=== PATIENT | male | born 1985 | race Two or more races ===

== ENCOUNTER 2022-02-28 22:18 | Inpatient (IN) | payer OTHER ==
[~2022-02-28] VITALS: Ht 180.3 cm; Wt 126.8 kg
[~2022-02-28 22:18] MED LIST: ALBU8HFA IH; ASPI325T87 PO; CHOL25TA4 PO; FERR325T27 PO; LEVO50 PO; MAGN500C16 PO; METO25XL PO; PANT-31 PO; POTA-92 PO; RIVA20TA PO; SACU1TAB7 PO; SPIR-37 PO; TORS10TA18 PO
[2022-02-28 22:53] LABS: BASOPHILS % (AUTO) 0.7 % (0.0-2.0); EOSINOPHILS % (AUTO) 1.4 % (1.0-6.0); HEMATOCRIT 42.7 % (41-53); HEMOGLOBIN 14.5 g/dL (13.5-17.5); LYMPHOCYTES % (AUTO) 28.1 % (22.0-44.0); MEAN CORPUSCULAR HEMOGLOBIN 31.2 pg (26.0-34.0); MEAN CORPUSCULAR HGB CONC 33.8 G/dL (31.0-37.0); MEAN CORPUSCULAR VOLUME 92 fL (80-100); MONOCYTES # (AUTO) 0.6 K/uL (0.1-1.0); MONOCYTES % (AUTO) 8.1 % (2.0-9.0); NEUTROPHILS # (AUTO) 4.5 K/uL (1.8-7.7); NEUTROPHILS % (AUTO) 61.7 % (40.0-70.0); PLATELET COUNT (AUTO) 198 K/uL (150-450); RED BLOOD CELL COUNT(AUTO) 4.64 MIL/uL (4.50-5.90); RED CELL DISTRIBUTION WIDTH 16.1 % (11.5-14.5)
[2022-02-28] MEDS ORDERED: NITROGLYCERIN 0.4 MG SUBLINGUAL TABLET #25 SL ONE (23:00)
[2022-02-28] MEDS ORDERED: MORPHINE SULFATE 4 MG/ML SYRINGE IVP ONE (23:00)
[2022-02-28] MEDS ORDERED: DiphenhydrAMINE HCL 50 MG/ML VIAL IVP ONE (23:00)
[2022-02-28 23:01] LABS: ANION GAP 16 mmol/L (8-16); CALCIUM, TOTAL 8.7 mg/dL (8.8-10.5); CARBON DIOXIDE 25 mmol/L (22-29); CHLORIDE 102 mmol/L (98-107); CREATININE 1.08 mg/dL (0.60-1.30); GLOMERULAR FILTR. RATE CALC > 60 mL/min (>60); GLUCOSE,RANDOM 109 mg/dL (70-110); POTASSIUM 3.7 mmol/L (3.5-5.1); SODIUM SERUM 143 mmol/L (136-145); UREA NITROGEN, BLOOD 11 mg/dL (7-18)
[2022-02-28 23:05] LABS: D-DIMER 0.46 mg/L FEU (0.00-0.50); INR 1.1 (0.9-1.1); PROTHROMBIN TIME 11.5 SEC (9.4-11.6)
[2022-02-28 23:14] LABS: B-TYPE NATRIURETIC PEPTIDE 2070 pg/mL (0-100)
[2022-02-28 23:18] LABS: ALANINE AMINOTRANSFERASE 37 U/L (12-78); ALBUMIN 3.7 g/dL (3.4-5.0); ALKALINE PHOSPHATASE 102 U/L (46-116); ASPARTATE AMINOTRANSFERASE 28 U/L (15-37); BILIRUBIN,TOTAL 1.3 mg/dL (0.1-1.0); CREATINE KINASE, TOTAL ONLY 79 U/L (39-308); THYROID STIMULATING HORMONE 7.04 uIU/mL (0.36-3.74); TOTAL PROTEIN, SERUM 7.5 g/dL (6.4-8.2)
[2022-02-28] MEDS ORDERED: BISACODYL 10 MG RECTAL RECTAL SUPPOSITORY PR PRN (23:30)
[2022-02-28] MEDS ORDERED: FUROSEMIDE 40 MG/4 ML VIAL IVP ONE (23:30)
[2022-02-28] MEDS ORDERED: MAGNESIUM HYDROXIDE SUSPENSION 30 ML UDCUP PO PRN (23:30)
[2022-02-28] MEDS ORDERED: ACETAMINOPHEN 325 MG TABLET PO PRN (23:30)
[2022-02-28] MEDS ORDERED: ZOLPIDEM TARTRATE 5 MG TABLET PO PRN (23:30)
[2022-02-28] MEDS: HEPARIN SODIUM,PORCINE 5,000 UNITS/ML VIAL SQ SCH (23:44)
[2022-02-28] MEDS ORDERED: AZITHROMYCIN 500 MG/NS 250 ML IV ONE (23:45)
[2022-02-28] MEDS ORDERED: CefTRIAXone 1 GM/DEXTROSE 50 ML IV ONE (23:45)
[2022-03-01] VITALS (7 sets, daily range): BP systolic 95–115; BP diastolic 64–76
[2022-03-01 00:06] LABS: COVID AG,FIA SOURCE NASAL SWAB
[2022-03-01] MEDS ORDERED: LORazepam 2 MG/ML VIAL IVP ONE (00:15)
[2022-03-01] MEDS ORDERED: METOPROLOL SUCCINATE 25 MG ER TABLET PO ONE (01:15)
[2022-03-01] MEDS ORDERED: AMIODARONE HCL 200 MG TABLET PO ONE (01:15)
[2022-03-01 02:09] LABS: APPEARANCE,URINE CLEAR (CLEAR); BILIRUBIN,URINE NEGATIVE (NEGATIVE); GLUCOSE, URINE (UA) NEGATIVE (NEGATIVE); KETONES,URINE NEGATIVE (NEGATIVE); LEUKOCYTE ESTERASE ,URINE NEGATIVE (NEGATIVE); NITRATE,URINE NEGATIVE (NEGATIVE); OCCULT BLOOD,URINE TRACE (NEGATIVE); PH,URINE 5.5 (5.0-8.0); PROTEIN,URINE TRACE mg/dL (NEGATIVE); SPECIFIC GRAVITIY, URINE 1.013 (1.003-1.030); UROBILINOGEN,URINE <=1.0 mg/dL (<=1.0)
[2022-03-01] MEDS ORDERED: SODIUM CHLORIDE 0.9% 100 ML ONE (02:19)
[2022-03-01 02:20] LABS: BACTERIA,URINE None Seen /HPF (None Seen); RBC,URINE 0-2 /HPF (0-2); WBC,URINE None Seen /HPF (0-5)
[2022-03-01] MEDS ORDERED: SACUBITRIL/VALSARTAN 49-51 MG TABLET PO ONE (02:45)
[2022-03-01] MEDS: MORPHINE SULFATE 2 MG/ML SYRINGE IVP PRN ×3 (03:36→21:34)
[2022-03-01] MEDS: LEVOTHYROXINE SODIUM 50 MCG TABLET PO SCH (07:02)
[2022-03-01] MEDS: HEPARIN SODIUM,PORCINE 5,000 UNITS/ML VIAL SQ SCH (08:23)
[2022-03-01] MEDS: DOCUSATE SODIUM 100 MG CAPSULE PO SCH ×2 (08:24→21:28)
[2022-03-01] MEDS: SPIRONOLACTONE 25 MG TABLET PO SCH (08:24)
[2022-03-01] MEDS: FUROSEMIDE 20 MG/2 ML VIAL IVP SCH ×2 (08:24→21:27)
[2022-03-01] MEDS: PANTOPRAZOLE SODIUM 40 MG DR TABLET PO SCH (08:24)
[2022-03-01] MEDS: CHOLECALCIFEROL (VIT D3) 1,000 UNITS [25 MCG] TABLET PO SCH (08:25)
[2022-03-01] MEDS: HYDROCODONE/ACETAMINOPHEN 5-325 MG TABLET PO PRN ×2 (08:25→13:16)
[2022-03-01] MEDS: SACUBITRIL/VALSARTAN 49-51 MG TABLET PO SCH ×2 (08:28→21:27)
[2022-03-01] MEDS: METOPROLOL SUCCINATE 25 MG ER TABLET PO SCH (08:28)
[2022-03-01] MEDS ORDERED: PANTOPRAZOLE SODIUM 40 MG DR TABLET PO SCH (09:00)
[2022-03-01] MEDS ORDERED: RIVAROXABAN 20 MG TABLET PO SCH (09:00)
[2022-03-01] MEDS: POTASSIUM CHLORIDE 10 MEQ ER TABLET PO SCH (09:00)
[2022-03-01 18:54] LABS: AMPHET/METH SCREEN,URINE NEGATIVE (NEGATIVE); BARBITURATE SCREEN, URINE NEGATIVE (NEGATIVE); BENZODIAZEPINES SCREEN,URINE NEGATIVE (NEGATIVE); CANNABINOID SCREEN,URINE NEGATIVE (NEGATIVE); COCAINE SCREEN,URINE NEGATIVE (NEGATIVE); METHADONE SCREEN, URINE NEGATIVE (NEGATIVE); OPIATE SCREEN,URINE POSITIVE (NEGATIVE)
[2022-03-01 18:56] LABS: PHENCYCLIDINE SCREEN,URINE NEGATIVE (NEGATIVE)
[2022-03-02] MEDS: MORPHINE SULFATE 2 MG/ML SYRINGE IVP PRN ×3 (02:30→21:07)
[2022-03-02 05:05] VITALS: BP 97/57
[2022-03-02] MEDS: LEVOTHYROXINE SODIUM 50 MCG TABLET PO SCH (06:32)
[2022-03-02 06:44] LABS: BASOPHILS % (AUTO) 0.8 % (0.0-2.0); EOSINOPHILS % (AUTO) 2.3 % (1.0-6.0); HEMATOCRIT 39.7 % (41-53); HEMOGLOBIN 13.5 g/dL (13.5-17.5); LYMPHOCYTES # (AUTO) 1.5 K/uL (1.0-4.8); MEAN CORPUSCULAR HEMOGLOBIN 31.2 pg (26.0-34.0); MEAN CORPUSCULAR VOLUME 92 fL (80-100); MONOCYTES # (AUTO) 0.4 K/uL (0.1-1.0); MONOCYTES % (AUTO) 6.8 % (2.0-9.0); NEUTROPHILS # (AUTO) 3.6 K/uL (1.8-7.7); NEUTROPHILS % (AUTO) 64.1 % (40.0-70.0); PLATELET COUNT (AUTO) 153 K/uL (150-450); RED BLOOD CELL COUNT(AUTO) 4.33 MIL/uL (4.50-5.90)
[2022-03-02 07:08] LABS: ANION GAP 8 mmol/L (8-16); CALCIUM, TOTAL 8.7 mg/dL (8.8-10.5); CARBON DIOXIDE 28 mmol/L (22-29); CHLORIDE 105 mmol/L (98-107); CREATININE 0.91 mg/dL (0.60-1.30); GLUCOSE,RANDOM 98 mg/dL (70-110); LIPASE 35 U/L (73-393); POTASSIUM 3.4 mmol/L (3.5-5.1); SODIUM SERUM 141 mmol/L (136-145); UREA NITROGEN, BLOOD 11 mg/dL (7-18)
[2022-03-02 07:09] LABS: GLOMERULAR FILTR. RATE CALC > 60 mL/min (>60)
[2022-03-02 07:50] VITALS: BP 115/70
[2022-03-02 09:00] VITALS: BP 98/68
[2022-03-02] MEDS: SACUBITRIL/VALSARTAN 49-51 MG TABLET PO SCH ×2 (09:00→21:02)
[2022-03-02] MEDS: ASPIRIN 81 MG CHEWABLE TABLET PO SCH (09:19)
[2022-03-02] MEDS: FUROSEMIDE 20 MG/2 ML VIAL IVP SCH (09:19)
[2022-03-02] MEDS: DOCUSATE SODIUM 100 MG CAPSULE PO SCH ×2 (09:20→21:02)
[2022-03-02] MEDS: PANTOPRAZOLE SODIUM 40 MG DR TABLET PO SCH (09:20)
[2022-03-02] MEDS: POTASSIUM CHLORIDE 10 MEQ ER TABLET PO SCH (09:20)
[2022-03-02] MEDS: CHOLECALCIFEROL (VIT D3) 1,000 UNITS [25 MCG] TABLET PO SCH (09:21)
[2022-03-02] MEDS: HYDROCODONE/ACETAMINOPHEN 5-325 MG TABLET PO PRN (09:56)
[2022-03-02] MEDS: METOPROLOL SUCCINATE 25 MG ER TABLET PO SCH (11:32)
[2022-03-02] MEDS: SPIRONOLACTONE 25 MG TABLET PO SCH (11:32)
[2022-03-02 11:35] VITALS: BP 102/65
[2022-03-02 15:38] VITALS: BP 99/75
[2022-03-02] MEDS ORDERED: RIVAROXABAN 20 MG TABLET PO SCH (18:00)
[2022-03-02] MEDS: FUROSEMIDE 40 MG TABLET PO SCH (21:02)
[2022-03-03 00:49] VITALS: BP 90/50
[2022-03-03] MEDS: MORPHINE SULFATE 2 MG/ML SYRINGE IVP PRN ×2 (02:34→08:10)
[2022-03-03 04:11] VITALS: BP 106/59
[2022-03-03] MEDS ORDERED: FURO40 PO (06:26)
[2022-03-03] MEDS: LEVOTHYROXINE SODIUM 50 MCG TABLET PO SCH (06:41)
[2022-03-03 07:46] VITALS: BP 101/54
[2022-03-03] MEDS: ASPIRIN 81 MG CHEWABLE TABLET PO SCH (08:15)
[2022-03-03] MEDS: DOCUSATE SODIUM 100 MG CAPSULE PO SCH (08:16)
[2022-03-03] MEDS: CHOLECALCIFEROL (VIT D3) 1,000 UNITS [25 MCG] TABLET PO SCH (08:16)
[2022-03-03] MEDS: POTASSIUM CHLORIDE 10 MEQ ER TABLET PO SCH (08:16)
[2022-03-03] MEDS: FUROSEMIDE 40 MG TABLET PO SCH (08:17)
[2022-03-03] MEDS: PANTOPRAZOLE SODIUM 40 MG DR TABLET PO SCH (08:17)
[2022-03-03] MEDS: METOPROLOL SUCCINATE 25 MG ER TABLET PO SCH (08:17)
[2022-03-03] MEDS: SPIRONOLACTONE 25 MG TABLET PO SCH (08:17)
[2022-03-03] MEDS: SACUBITRIL/VALSARTAN 49-51 MG TABLET PO SCH (08:18)
[2022-03-03] MEDS: HYDROCODONE/ACETAMINOPHEN 5-325 MG TABLET PO PRN (11:03)
[2022-03-03 11:21] VITALS: BP 109/63
== END 2022-03-03 12:30 | disposition home or self-care (01) | DRG 198 ==
LOC: EMS 22:28 → 5S 03-01 00:46
PROVIDERS: ADMIT Internal Medicine; ATTEND Internal Medicine
DX: I20.0 Unstable angina (principal); I50.23 Acute on chronic systolic (congestive) heart failure; E83.51 Hypocalcemia; I42.8 Other cardiomyopathies; I11.0 Hypertensive heart disease with heart failure; E03.9 Hypothyroidism, unspecified; E66.01 Morbid (severe) obesity due to excess calories; I25.2 Old myocardial infarction; Z20.822 Contact with and (suspected) exposure to COVID-19; Z79.01 Long term (current) use of anticoagulants; Z79.82 Long term (current) use of aspirin; Z79.890 Hormone replacement therapy; Z86.711 Personal history of pulmonary embolism; Z86.718 Personal history of other venous thrombosis and embolism; Z95.810 Presence of automatic (implantable) cardiac defibrillator; Z68.39 Body mass index [BMI] 39.0-39.9, adult
CPT/HCPCS: 71045; 80048; 80053; 80307; 81001; 82550; 83690; 83880; 84439; 84443; 84484; 85025; 85379; 85610; 85730; 87040; 93005; 93306; 99285; J0456; J0696; J1200; J1644; J1940; J2060; J2270; J7050; Q9967; 36415-L1; 36415-TC

== ENCOUNTER 2022-04-06 03:35 | Inpatient (IN) | payer OTHER ==
[~2022-04-06] VITALS: Ht 180.3 cm; Wt 131.5 kg
[~2022-04-06 03:35] MED LIST changes: +FURO40 PO; +PERCT PO
[2022-04-06] MEDS ORDERED: MAGN400T57 PO (03:56)
[2022-04-06] MEDS ORDERED: TORS20TA5 PO (03:56)
[2022-04-06] MEDS ORDERED: POTA-206 PO (03:56)
[2022-04-06] MEDS ORDERED: AMIO200T68 PO (03:58)
[2022-04-06] MEDS ORDERED: ASPIRIN 81 MG CHEWABLE TABLET PO ONE (04:00)
[2022-04-06 04:37] LABS: BASOPHILS % (AUTO) 0.9 % (0.0-2.0); EOSINOPHILS % (AUTO) 0.2 % (1.0-6.0); HEMATOCRIT 39.6 % (41-53); HEMOGLOBIN 13.1 g/dL (13.5-17.5); LYMPHOCYTES # (AUTO) 1.2 K/uL (1.0-4.8); LYMPHOCYTES % (AUTO) 13.3 % (22.0-44.0); MEAN CORPUSCULAR HEMOGLOBIN 30.7 pg (26.0-34.0); MEAN CORPUSCULAR HGB CONC 33.1 G/dL (31.0-37.0); MEAN CORPUSCULAR VOLUME 93 fL (80-100); MONOCYTES # (AUTO) 0.6 K/uL (0.1-1.0); MONOCYTES % (AUTO) 7.1 % (2.0-9.0); NEUTROPHILS % (AUTO) 78.5 % (40.0-70.0); PLATELET COUNT (AUTO) 215 K/uL (150-450); RED BLOOD CELL COUNT(AUTO) 4.27 MIL/uL (4.50-5.90); RED CELL DISTRIBUTION WIDTH 15.8 % (11.5-14.5)
[2022-04-06] MEDS ORDERED: DiphenhydrAMINE HCL 25 MG CAPSULE PO ONE (04:45)
[2022-04-06] MEDS ORDERED: METOCLOPRAMIDE HCL 5 MG/ML 2 ML VIAL IVP ONE (04:45)
[2022-04-06 04:51] LABS: ANION GAP 12 mmol/L (8-16); CALCIUM, TOTAL 8.6 mg/dL (8.8-10.5); CARBON DIOXIDE 24 mmol/L (22-29); CHLORIDE 101 mmol/L (98-107); CREATININE 1.13 mg/dL (0.60-1.30); GLOMERULAR FILTR. RATE CALC > 60 mL/min (>60); GLUCOSE,RANDOM 106 mg/dL (70-110); POTASSIUM 3.8 mmol/L (3.5-5.1); SODIUM SERUM 137 mmol/L (136-145); UREA NITROGEN, BLOOD 14 mg/dL (7-18)
[2022-04-06] MEDS: NITROGLYCERIN 0.4 MG SUBLINGUAL TABLET #25 SL ONE ×2 (04:52→05:06)
[2022-04-06 04:58] LABS: INFLUENZA TYPE A NEGATIVE FOR TYPE A (NEGATIVE); INFLUENZA TYPE B NEGATIVE FOR TYPE B (NEGATIVE)
[2022-04-06 04:58] LABS: B-TYPE NATRIURETIC PEPTIDE 3040 pg/mL (0-100)
[2022-04-06 04:59] LABS: LACTIC ACID 1.5 mmol/L (0.4-2.0)
[2022-04-06 05:04] LABS: INR 1.2 (0.9-1.1); PROTHROMBIN TIME 12.4 SEC (9.4-11.6)
[2022-04-06] MEDS ORDERED: FUROSEMIDE 40 MG/4 ML VIAL IVP ONE (05:15)
[2022-04-06] MEDS ORDERED: KETOROLAC TROMETHAMINE 30 MG/ML VIAL IVP ONE (05:15)
[2022-04-06 05:16] LABS: ALANINE AMINOTRANSFERASE 55 U/L (12-78); ALBUMIN 3.6 g/dL (3.4-5.0); ALKALINE PHOSPHATASE 80 U/L (46-116); ASPARTATE AMINOTRANSFERASE 29 U/L (15-37); BILIRUBIN,TOTAL 1.5 mg/dL (0.1-1.0); C-REACTIVE PROTEIN QUANT 0.94 mg/dL (0.00-0.30); CREATINE KINASE, TOTAL ONLY 76 U/L (39-308); FERRITIN 74 ng/mL (26-388); LACTATE DEHYDROGENASE 212 U/L (85-227); TOTAL PROTEIN, SERUM 7.3 g/dL (6.4-8.2)
[2022-04-06 05:41] LABS: D-DIMER 0.91 mg/L FEU (0.00-0.50)
[2022-04-06] MEDS ORDERED: ACETAMINOPHEN 325 MG TABLET PO PRN (06:45)
[2022-04-06] MEDS ORDERED: HEPARIN SODIUM,PORCINE 5,000 UNITS/ML VIAL SQ SCH (08:00)
[2022-04-06 13:15] LABS: APPEARANCE,URINE CLEAR (CLEAR); BILIRUBIN,URINE NEGATIVE (NEGATIVE); GLUCOSE, URINE (UA) NEGATIVE (NEGATIVE); KETONES,URINE NEGATIVE (NEGATIVE); LEUKOCYTE ESTERASE ,URINE NEGATIVE (NEGATIVE); NITRATE,URINE NEGATIVE (NEGATIVE); OCCULT BLOOD,URINE NEGATIVE (NEGATIVE); PROTEIN,URINE 300-600,SEE CONFIRM mg/dL (NEGATIVE); SPECIFIC GRAVITIY, URINE 1.026 (1.003-1.030); UROBILINOGEN,URINE <=1.0 mg/dL (<=1.0)
[2022-04-06] MEDS ORDERED: NITROGLYCERIN 0.4 MG SUBLINGUAL TABLET #25 SL PRN (13:15)
[2022-04-06 13:36] LABS: SULFOSALICYLIC ACID,URINE 4+ (Negative)
[2022-04-06 13:37] LABS: AMORPHOUS SEDIMENT,UR Few /LPF (None Seen); BACTERIA,URINE None Seen /HPF (None Seen); HYALINE CASTS, URINE 0-2 /LPF (None Seen); RBC,URINE None Seen /HPF (0-2); SQUAMOUS EPITHELIAL CELL,UR Few /LPF (None Seen); WBC,URINE 0-2 /HPF (0-5)
[2022-04-06 13:52] LABS: AMPHET/METH SCREEN,URINE NEGATIVE (NEGATIVE); BARBITURATE SCREEN, URINE NEGATIVE (NEGATIVE); BENZODIAZEPINES SCREEN,URINE NEGATIVE (NEGATIVE); CANNABINOID SCREEN,URINE NEGATIVE (NEGATIVE); COCAINE SCREEN,URINE NEGATIVE (NEGATIVE); METHADONE SCREEN, URINE NEGATIVE (NEGATIVE); OPIATE SCREEN,URINE NEGATIVE (NEGATIVE)
[2022-04-06 13:54] LABS: PHENCYCLIDINE SCREEN,URINE NEGATIVE (NEGATIVE)
[2022-04-06] MEDS: HYDROCODONE/ACETAMINOPHEN 5-325 MG TABLET PO PRN (14:17)
[2022-04-06] MEDS ORDERED: IOHEXOL 350 MG/ML 100 ML VIAL ONE (15:33)
[2022-04-06] MEDS ORDERED: SODIUM CHLORIDE 0.9% 100 ML ONE (15:33)
[2022-04-06 21:24] VITALS: BP 124/50
[2022-04-06] MEDS: FUROSEMIDE 40 MG/4 ML VIAL IVP SCH (22:27)
[2022-04-06] MEDS: MORPHINE SULFATE 2 MG/ML SYRINGE IVP PRN (22:28)
[2022-04-06] MEDS: METOCLOPRAMIDE HCL 5 MG/ML 2 ML VIAL IVP PRN (22:29)
[2022-04-06] MEDS: SACUBITRIL/VALSARTAN 24-26 MG TABLET PO SCH (23:15)
[2022-04-06] MEDS: MAGNESIUM OXIDE 400 MG TABLET PO SCH (23:16)
[2022-04-07 00:36] VITALS: BP 121/76
[2022-04-07 04:50] VITALS: BP 146/79
[2022-04-07] MEDS: MORPHINE SULFATE 2 MG/ML SYRINGE IVP PRN ×4 (04:52→21:27)
[2022-04-07] MEDS: LEVOTHYROXINE SODIUM 50 MCG TABLET PO SCH (06:32)
[2022-04-07 07:47] LABS: BASOPHILS % (AUTO) 0.8 % (0.0-2.0); EOSINOPHILS % (AUTO) 1.7 % (1.0-6.0); HEMATOCRIT 40.3 % (41-53); HEMOGLOBIN 13.4 g/dL (13.5-17.5); LYMPHOCYTES # (AUTO) 1.5 K/uL (1.0-4.8); LYMPHOCYTES % (AUTO) 23.1 % (22.0-44.0); MEAN CORPUSCULAR HEMOGLOBIN 31.2 pg (26.0-34.0); MEAN CORPUSCULAR HGB CONC 33.3 G/dL (31.0-37.0); MEAN CORPUSCULAR VOLUME 94 fL (80-100); MONOCYTES # (AUTO) 0.5 K/uL (0.1-1.0); NEUTROPHILS # (AUTO) 4.4 K/uL (1.8-7.7); NEUTROPHILS % (AUTO) 67.4 % (40.0-70.0); PLATELET COUNT (AUTO) 203 K/uL (150-450); RED CELL DISTRIBUTION WIDTH 16.1 % (11.5-14.5)
[2022-04-07 07:50] VITALS: BP 113/79
[2022-04-07] MEDS ORDERED: LEVOTHYROXINE SODIUM 50 MCG TABLET PO SCH (08:00)
[2022-04-07 08:06] LABS: ANION GAP 11 mmol/L (8-16); CALCIUM, TOTAL 8.9 mg/dL (8.8-10.5); CARBON DIOXIDE 23 mmol/L (22-29); CHLORIDE 101 mmol/L (98-107); CREATININE 1.04 mg/dL (0.60-1.30); GLUCOSE,RANDOM 89 mg/dL (70-110); POTASSIUM 3.6 mmol/L (3.5-5.1); SODIUM SERUM 135 mmol/L (136-145); UREA NITROGEN, BLOOD 20 mg/dL (7-18)
[2022-04-07 08:08] LABS: GLOMERULAR FILTR. RATE CALC > 60 mL/min (>60)
[2022-04-07] MEDS: SPIRONOLACTONE 25 MG TABLET PO SCH (08:56)
[2022-04-07] MEDS: PANTOPRAZOLE SODIUM 40 MG DR TABLET PO SCH (08:56)
[2022-04-07] MEDS: SACUBITRIL/VALSARTAN 24-26 MG TABLET PO SCH ×2 (08:56→21:12)
[2022-04-07] MEDS: FUROSEMIDE 40 MG/4 ML VIAL IVP SCH ×2 (08:57→21:10)
[2022-04-07] MEDS: POTASSIUM CHLORIDE 20 MEQ ER TABLET PO SCH (08:57)
[2022-04-07] MEDS: METOPROLOL SUCCINATE 25 MG ER TABLET PO SCH (08:57)
[2022-04-07] MEDS ORDERED: METOPROLOL TARTRATE 25 MG TABLET PO SCH (09:00)
[2022-04-07] MEDS ORDERED: PANTOPRAZOLE SODIUM 40 MG DR TABLET PO SCH (09:00)
[2022-04-07 11:10] VITALS: BP 117/76
[2022-04-07 15:30] VITALS: BP 117/86
[2022-04-07] MEDS: RIVAROXABAN 20 MG TABLET PO SCH (17:19)
[2022-04-07 20:00] VITALS: BP 111/71
[2022-04-07] MEDS: MAGNESIUM OXIDE 400 MG TABLET PO SCH (21:09)
[2022-04-07] MEDS: BENZONATATE 100 MG CAPSULE PO PRN (21:09)
[2022-04-08 00:40] VITALS: BP 117/70
[2022-04-08] MEDS: DiphenhydrAMINE HCL 25 MG CAPSULE PO PRN ×2 (00:53→19:43)
[2022-04-08 05:31] VITALS: BP 107/63
[2022-04-08 06:04] LABS: BASOPHILS % (AUTO) 0.7 % (0.0-2.0); EOSINOPHILS % (AUTO) 1.5 % (1.0-6.0); HEMATOCRIT 38.6 % (41-53); HEMOGLOBIN 12.7 g/dL (13.5-17.5); LYMPHOCYTES # (AUTO) 1.5 K/uL (1.0-4.8); LYMPHOCYTES % (AUTO) 22.6 % (22.0-44.0); MEAN CORPUSCULAR HGB CONC 32.9 G/dL (31.0-37.0); MEAN CORPUSCULAR VOLUME 94 fL (80-100); MONOCYTES # (AUTO) 0.4 K/uL (0.1-1.0); MONOCYTES % (AUTO) 6.9 % (2.0-9.0); NEUTROPHILS # (AUTO) 4.4 K/uL (1.8-7.7); NEUTROPHILS % (AUTO) 68.3 % (40.0-70.0); PLATELET COUNT (AUTO) 177 K/uL (150-450); RED CELL DISTRIBUTION WIDTH 16.3 % (11.5-14.5)
[2022-04-08 06:16] LABS: ALANINE AMINOTRANSFERASE 40 U/L (12-78); ALBUMIN 3.3 g/dL (3.4-5.0); ALKALINE PHOSPHATASE 75 U/L (46-116); ANION GAP 4 mmol/L (8-16); ASPARTATE AMINOTRANSFERASE 23 U/L (15-37); BILIRUBIN,TOTAL 1.9 mg/dL (0.1-1.0); CALCIUM, TOTAL 8.4 mg/dL (8.8-10.5); CARBON DIOXIDE 31 mmol/L (22-29); CHLORIDE 100 mmol/L (98-107); GLUCOSE,RANDOM 96 mg/dL (70-110); POTASSIUM 4.1 mmol/L (3.5-5.1); SODIUM SERUM 135 mmol/L (136-145); UREA NITROGEN, BLOOD 17 mg/dL (7-18)
[2022-04-08 06:24] LABS: GLOMERULAR FILTR. RATE CALC > 60 mL/min (>60)
[2022-04-08] MEDS: LEVOTHYROXINE SODIUM 50 MCG TABLET PO SCH (06:33)
[2022-04-08] MEDS: MORPHINE SULFATE 2 MG/ML SYRINGE IVP PRN ×4 (06:34→21:03)
[2022-04-08 07:50] VITALS: BP 101/60
[2022-04-08] MEDS: FUROSEMIDE 40 MG/4 ML VIAL IVP SCH ×2 (09:00→21:03)
[2022-04-08] MEDS ORDERED: IOHEXOL 350 MG/ML 100 ML VIAL ONE (09:03)
[2022-04-08] MEDS: POTASSIUM CHLORIDE 20 MEQ ER TABLET PO SCH (09:57)
[2022-04-08] MEDS: METOPROLOL SUCCINATE 25 MG ER TABLET PO SCH (09:57)
[2022-04-08] MEDS: PANTOPRAZOLE SODIUM 40 MG DR TABLET PO SCH (09:57)
[2022-04-08] MEDS: SACUBITRIL/VALSARTAN 24-26 MG TABLET PO SCH ×2 (09:58→21:02)
[2022-04-08] MEDS: SPIRONOLACTONE 25 MG TABLET PO SCH (09:58)
[2022-04-08 11:40] VITALS: BP 109/47
[2022-04-08 16:20] VITALS: BP 106/82
[2022-04-08] MEDS: BENZONATATE 100 MG CAPSULE PO PRN (16:43)
[2022-04-08] MEDS: RIVAROXABAN 20 MG TABLET PO SCH (17:17)
[2022-04-08] MEDS: HYDROCODONE/ACETAMINOPHEN 5-325 MG TABLET PO PRN (19:43)
[2022-04-08] MEDS: METOCLOPRAMIDE HCL 5 MG/ML 2 ML VIAL IVP PRN (19:43)
[2022-04-08 20:00] VITALS: BP 112/64
[2022-04-08] MEDS: MAGNESIUM OXIDE 400 MG TABLET PO SCH (21:02)
[2022-04-09] MEDS: MORPHINE SULFATE 2 MG/ML SYRINGE IVP PRN ×4 (01:54→19:48)
[2022-04-09 05:29] VITALS: BP 100/60
[2022-04-09 08:37] VITALS: BP 100/55
[2022-04-09] MEDS: SPIRONOLACTONE 25 MG TABLET PO SCH (08:51)
[2022-04-09] MEDS: PANTOPRAZOLE SODIUM 40 MG DR TABLET PO SCH (08:51)
[2022-04-09] MEDS: FUROSEMIDE 40 MG/4 ML VIAL IVP SCH (08:51)
[2022-04-09] MEDS: LEVOTHYROXINE SODIUM 50 MCG TABLET PO SCH (08:51)
[2022-04-09] MEDS: SACUBITRIL/VALSARTAN 24-26 MG TABLET PO SCH ×2 (08:51→20:25)
[2022-04-09] MEDS: METOPROLOL SUCCINATE 25 MG ER TABLET PO SCH (08:51)
[2022-04-09] MEDS: POTASSIUM CHLORIDE 20 MEQ ER TABLET PO SCH (08:52)
[2022-04-09 11:01] VITALS: BP 103/63
[2022-04-09] MEDS: METOCLOPRAMIDE HCL 5 MG/ML 2 ML VIAL IVP PRN (13:44)
[2022-04-09 15:52] VITALS: BP 99/69
[2022-04-09] MEDS: RIVAROXABAN 20 MG TABLET PO SCH (17:19)
[2022-04-09] MEDS ORDERED: SODIUM CHLORIDE 0.9% 100 ML ONE (17:50)
[2022-04-09] MEDS ORDERED: IOHEXOL 350 MG/ML 100 ML VIAL ONE (17:50)
[2022-04-09] MEDS: DiphenhydrAMINE HCL 25 MG CAPSULE PO PRN (19:48)
[2022-04-09] MEDS: MAGNESIUM OXIDE 400 MG TABLET PO SCH (20:25)
[2022-04-09] MEDS: FUROSEMIDE 40 MG TABLET PO SCH (20:25)
[2022-04-09 21:32] VITALS: BP 131/69
[2022-04-10] MEDS: MORPHINE SULFATE 2 MG/ML SYRINGE IVP PRN ×3 (01:00→12:37)
[2022-04-10 01:30] VITALS: BP 116/68
[2022-04-10 05:10] VITALS: BP 128/68
[2022-04-10] MEDS: LEVOTHYROXINE SODIUM 50 MCG TABLET PO SCH (06:13)
[2022-04-10 07:25] VITALS: BP 132/72
[2022-04-10 07:43] LABS: ANION GAP 6 mmol/L (8-16); CALCIUM, TOTAL 9.2 mg/dL (8.8-10.5); CARBON DIOXIDE 28 mmol/L (22-29); CHLORIDE 102 mmol/L (98-107); CREATININE 1.01 mg/dL (0.60-1.30); GLUCOSE,RANDOM 99 mg/dL (70-110); POTASSIUM 3.5 mmol/L (3.5-5.1); SODIUM SERUM 136 mmol/L (136-145); UREA NITROGEN, BLOOD 18 mg/dL (7-18)
[2022-04-10 07:48] LABS: GLOMERULAR FILTR. RATE CALC > 60 mL/min (>60)
[2022-04-10] MEDS: POTASSIUM CHLORIDE 20 MEQ ER TABLET PO SCH (09:17)
[2022-04-10] MEDS: SACUBITRIL/VALSARTAN 24-26 MG TABLET PO SCH ×2 (09:17→21:03)
[2022-04-10] MEDS: SPIRONOLACTONE 25 MG TABLET PO SCH (09:17)
[2022-04-10] MEDS: PANTOPRAZOLE SODIUM 40 MG DR TABLET PO SCH (09:17)
[2022-04-10] MEDS: METOPROLOL SUCCINATE 25 MG ER TABLET PO SCH (09:17)
[2022-04-10] MEDS: FUROSEMIDE 40 MG TABLET PO SCH ×2 (09:17→21:03)
[2022-04-10 11:15] VITALS: BP 124/81
[2022-04-10 14:36] VITALS: BP 109/80
[2022-04-10] MEDS: HYDROCODONE/ACETAMINOPHEN 5-325 MG TABLET PO PRN ×2 (17:08→21:04)
[2022-04-10] MEDS: RIVAROXABAN 20 MG TABLET PO SCH (17:48)
[2022-04-10] MEDS: BENZONATATE 100 MG CAPSULE PO PRN (17:48)
[2022-04-10 19:50] VITALS: BP 119/76
[2022-04-10] MEDS: DiphenhydrAMINE HCL 25 MG CAPSULE PO PRN (21:04)
[2022-04-10] MEDS: MAGNESIUM OXIDE 400 MG TABLET PO SCH (21:04)
[2022-04-10] MEDS ORDERED: GuaiFENesin/CODEINE [SUGAR FREE] 200-20MG/10 ML SYRUP UDCUP PO ONE (21:45)
[2022-04-11] MEDS: METOCLOPRAMIDE HCL 5 MG/ML 2 ML VIAL IVP PRN (00:05)
[2022-04-11 00:33] VITALS: BP 117/59
[2022-04-11] MEDS: DiphenhydrAMINE HCL 25 MG CAPSULE PO PRN (00:59)
[2022-04-11] MEDS: HYDROCODONE/ACETAMINOPHEN 5-325 MG TABLET PO PRN (00:59)
[2022-04-11] MEDS: BENZONATATE 100 MG CAPSULE PO PRN (00:59)
[2022-04-11 05:09] VITALS: BP 97/66
[2022-04-11 07:53] VITALS: BP 97/56
[2022-04-11] MEDS: POTASSIUM CHLORIDE 20 MEQ ER TABLET PO SCH (08:10)
[2022-04-11] MEDS: LEVOTHYROXINE SODIUM 50 MCG TABLET PO SCH (08:11)
[2022-04-11] MEDS: FUROSEMIDE 40 MG TABLET PO SCH (08:13)
[2022-04-11] MEDS: PANTOPRAZOLE SODIUM 40 MG DR TABLET PO SCH (08:13)
[2022-04-11] MEDS: METOPROLOL SUCCINATE 25 MG ER TABLET PO SCH (08:19)
[2022-04-11] MEDS: SPIRONOLACTONE 25 MG TABLET PO SCH (08:20)
[2022-04-11] MEDS: SACUBITRIL/VALSARTAN 24-26 MG TABLET PO SCH (08:20)
== END 2022-04-11 11:45 | disposition home or self-care (01) | DRG 194 ==
LOC: EMS 03:37 → 5N 17:57
PROVIDERS: ADMIT Internal Medicine; ATTEND Internal Medicine
DX: I11.0 Hypertensive heart disease with heart failure (principal); E44.0 Moderate protein-calorie malnutrition; I82.290 Acute embolism and thrombosis of other thoracic veins; I42.8 Other cardiomyopathies; I50.43 Acute on chronic combined systolic (congestive) and diastolic (congestive) heart failure; G89.29 Other chronic pain; Z20.822 Contact with and (suspected) exposure to COVID-19; K76.9 Liver disease, unspecified; M54.9 Dorsalgia, unspecified; I34.0 Nonrheumatic mitral (valve) insufficiency; E66.01 Morbid (severe) obesity due to excess calories; F15.10 Other stimulant abuse, uncomplicated; F41.9 Anxiety disorder, unspecified; G47.00 Insomnia, unspecified; I44.7 Left bundle-branch block, unspecified; Z78.9 Other specified health status; Z86.16 Personal history of COVID-19; Z91.19 Patient's noncompliance with other medical treatment and regimen; Z95.810 Presence of automatic (implantable) cardiac defibrillator; Z68.41 Body mass index [BMI] 40.0-44.9, adult; Z88.8 Allergy status to other drugs, medicaments and biological substances; Z79.899 Other long term (current) drug therapy; Z90.49 Acquired absence of other specified parts of digestive tract; Z79.82 Long term (current) use of aspirin; Z71.51 Drug abuse counseling and surveillance of drug abuser
CPT/HCPCS: 36245; 36569; 71045; 71275; 76937; 80048; 80053; 81001; 81002; 82550; 82728; 83605; 83615; 83735; 83880; 84145; 84484; 85025; 85379; 85384; 85610; 85730; 86140; 87040; 87804; 93005; 99285; J1644; J1885; J1940; J2270; J2765; J7050; Q9967; 36415-L1; 36415-TC; U0003